=== PATIENT | male | born 1995 | race Caucasian/White ===

== ENCOUNTER 2019-05-12 13:57 | Emergency (ER) | payer MEDICAID ==
[~2019-05-12] VITALS: Ht 172.7 cm; Wt 44.6 kg
--- NOTE | 2019-05-12 16:26 | NUR ---
PT IN ROOM WITH GIRLFRIEND. PT IS CHANGING INTO GREEN SCRUBS AND PLACING BELONGINGS INTO PT BELONGINGS BAG. PT'S BELONGINGS HAVE BEEN LOGGED ON THE BELONGINGS SHEET.
[2019-05-12 17:07] LABS: BASOPHILS % (AUTO) 0.1 % (0-1); EOSINOPHILS % (AUTO) 0.1 % (0-6); HEMATOCRIT 39.8 % (42.0-52.0); HEMOGLOBIN 13.7 g/dl (14.0-17.9); LYMPHOCYTES % (AUTO) 6.1 % (21-51); MEAN CORPUSCULAR HEMOGLOBIN 30.2 PG (27.0-31.0); MEAN CORPUSCULAR HGB CONC 34.5 g/dL (33.0-36.5); MEAN CORPUSCULAR VOLUME 87.6 FL (78-98); MEAN PLATELET VOLUME 7.9 FL (7.4-10.4); MONOCYTES # (AUTO) 0.6 X10'3 (0-0.9); MONOCYTES % (AUTO) 3.2 % (2-12); NEUTROPHILS # (AUTO) 15.6 X10'3 (1.8-7.7); NEUTROPHILS % (AUTO) 90.5 % (42-75); PLATELET COUNT 237 X10'3 (140-440); RED BLOOD COUNT 4.54 X10'6 (4.70-6.10); RED CELL DISTRIBUTION WIDTH 12.8 % (11.5-14.5); WHITE BLOOD COUNT 17.2 X10'3 (4.5-11.0)
[2019-05-12] MEDS ORDERED: haloperidol lactate 5mg/ml inj IM ONE (17:15)
[2019-05-12] MEDS ORDERED: normal saline 1000ML IV soln IV ONE (17:15)
[2019-05-12 17:19] LABS: ALANINE AMINOTRANSFERASE 10 U/L (12-78); ALBUMIN 4.4 G/DL (3.4-5.0); ALBUMIN/GLOBULIN RATIO 1.4 (1.1-1.5); ALKALINE PHOSPHATASE 98 IU/L (46-116); ANION GAP 10 (8-16); ASPARTATE AMINO TRANSFERASE 17 U/L (10-37); BILIRUBIN,TOTAL 0.6 MG/DL (0.1-1.0); BLOOD UREA NITROGEN 11 MG/DL (7-18); BUN/CREATININE RATIO 11.2 (5.4-32.0); CALCIUM 9.4 MG/DL (8.5-10.1); CHLORIDE 105 MMOL/L (99-107); CREATININE 0.98 MG/DL (0.60-1.10); GLUCOSE 90 MG/DL (70-104); POTASSIUM 3.7 MMOL/L (3.5-5.1); SODIUM 141 MMOL/L (135-145); TOTAL CARBON DIOXIDE 25.9 MMOL/L (24-32); TOTAL PROTEIN 7.5 G/DL (6.4-8.2); eGFR > 90 ML/MIN
[2019-05-12 17:28] LABS: ETHANOL < 0.010 GM/DL (0.0-0.010)
--- NOTE | 2019-05-12 17:56 | NUR ---
PT IS TEARFUL AND STATES HE IS LOSING INTEREST IN EVERYTHING.
[2019-05-12 18:14] LABS: CLARITY,URINE CLEAR (Clear); COLOR,URINE AMBER (Yellow); GLUCOSE, URINE NEGATIVE (Neg); KETONES,URINE >=80 mg/dl (Neg); LEUKOCYTE ESTERASE ,URINE NEGATIVE (Neg); NITRITES, URINE NEGATIVE (Neg); OCCULT BLOOD,URINE NEGATIVE (Neg); PROTEIN,URINE 100 mg/dl (Neg)
[2019-05-12 18:17] LABS: UA COLLECTION TYPE VOIDED
--- NOTE | 2019-05-12 18:18 | NUR ---
MEAL TRAYS ARRIVE AND PLACED IN PT'S ROOM.
[2019-05-12 18:22] LABS: MUCUS STRANDS MANY /LPF (Neg); RBC,URINE NONE SEEN /HPF (0-2); SQUAMOUS EPITHELIAL CELL,UR FEW /LPF (FEW); WBC,URINE 0-4 /HPF (0-4)
[2019-05-12 18:23] LABS: BACTERIA,URINE FEW /HPF (Neg); COARSE GRANULAR CAST 0-3 /LPF (NEGATIVE)
[2019-05-12 18:29] LABS: URINE AMPHETAMINE SCREEN NEGATIVE (Neg); URINE BARBITUATE SCREEN NEGATIVE (Neg); URINE BENZODIAZEPINES SCREEN NEGATIVE (Neg); URINE CANNABINOID SCREEN POSITIVE (Neg); URINE COCAINE SCREEN NEGATIVE (Neg); URINE METHADONE SCREEN NEGATIVE (Neg); URINE OPIATE SCREEN NEGATIVE (Neg); URINE PHENCYCLIDINE SCREEN NEGATIVE (Neg)
[2019-05-12] MEDS ORDERED: LORazepam 1 MG tablet PO ONE (18:40)
--- NOTE | 2019-05-12 18:43 | NUR ---
PT REQUESTING TO HAVE HIS IV REMOVED NOW THAT THE FLUIDS HAVE INFUSED. CHECK WITH DR NICOLE AND HE OKS THEIR DC.
[2019-05-12 19:30] VITALS: BP 105/52
--- NOTE | 2019-05-13 06:39 | NUR ---
Patient is sleeping calmly, lying on his right side. No signs of distress.
--- NOTE | 2019-05-13 07:59 | NUR ---
Patient given breakfast tray. Patient is eating.
--- NOTE | 2019-05-13 08:02 | NUR ---
Patient's GF is now visiting in room.
--- NOTE | 2019-05-13 11:33 | NUR ---
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 NO SIGNS OF DISTRESS NOTED, ALL SAFETY MEASURES IN PLACE, IN VIEW OF STAFF AT ALL TIMES.
--- NOTE | 2019-05-13 12:22 | NUR ---
Patient is being seen by .
--- NOTE | 2019-05-13 12:27 | NUR ---
Girlfriend was called about patient being discharged. She will be here to drive him home.
== END 2019-05-13 13:04 | disposition home or self-care (01) ==
LOC: ER 13:57
DX: F29 Unspecified psychosis not due to a substance or known physiological condition (principal); F32.9 Major depressive disorder, single episode, unspecified; N50.812 Left testicular pain; N50.811 Right testicular pain; F17.200 Nicotine dependence, unspecified, uncomplicated; F12.90 Cannabis use, unspecified, uncomplicated
CPT/HCPCS: 36415; 71045; 80053; 80305; 80320; 81001; 83605; 84145; 84443; 85025; 87040; 87502; 87503; 96372; 99284; J1630; J7030

== ENCOUNTER 2020-11-27 16:05 | Emergency (ER) | payer MEDICAID ==
[~2020-11-27] VITALS: Ht 172.7 cm; Wt 54.5 kg
[2020-11-27 17:00] VITALS: BP 99/77
== END 2020-11-27 18:21 | disposition home or self-care (01) ==
LOC: ER 16:06
DX: B34.9 Viral infection, unspecified (principal); Z20.822 Contact with and (suspected) exposure to COVID-19; R06.02 Shortness of breath; R05 Cough; R19.7 Diarrhea, unspecified; F17.210 Nicotine dependence, cigarettes, uncomplicated; F12.90 Cannabis use, unspecified, uncomplicated
CPT/HCPCS: 87635; 99283; C9803

== ENCOUNTER 2021-04-12 14:00 | Emergency (ER) | payer MEDICAID ==
[~2021-04-12] VITALS: Ht 175.3 cm; Wt 54.5 kg
[2021-04-12 14:16] VITALS: BP 119/78
[2021-04-12] MEDS ORDERED: acetaminophen 325mg tablet PO ONE (14:25)
[2021-04-12] MEDS ORDERED: ALBU6.7H9 INH (14:31)
== END 2021-04-12 15:04 | disposition home or self-care (01) ==
LOC: ER 14:01
DX: U07.1 COVID-19 (principal); F17.210 Nicotine dependence, cigarettes, uncomplicated; F12.10 Cannabis abuse, uncomplicated
CPT/HCPCS: 36415; 99283; U0003; U0005

== ENCOUNTER 2021-05-17 15:06 | Emergency (ER) | payer MEDICAID ==
[~2021-05-17] VITALS: Ht 172.7 cm; Wt 54.5 kg
[~2021-05-17 15:06] MED LIST: ALBU6.7H9 INH
[2021-05-17 15:16] VITALS: BP 116/68
--- NOTE | 2021-05-17 17:17 | NUR ---
NOT IN LOBBY
--- NOTE | 2021-05-17 17:45 | NUR ---
NOT IN LOBBY
--- NOTE | 2021-05-17 17:57 | NUR ---
NOT IN LOBBY
== END 2021-05-17 18:08 | disposition left against medical advice (07) ==
LOC: ER 15:07
DX: M79.672 Pain in left foot (principal); Z53.21 Procedure and treatment not carried out due to patient leaving prior to being seen by health care provider